=== PATIENT | female | born 1935 | race Caucasian/White ===

== ENCOUNTER 2017-03-19 08:17 | Day surgery (SDC) | payer MEDICARE, MEDICAID ==
[2017-03-19 12:26] VITALS: BP 163/71
== END 2017-03-19 10:29 | disposition home or self-care (01) ==
LOC: SDC 08:17
PROC: 08RK3JZ Replacement of Left Lens with Synthetic Substitute, Percutaneous Approach (ICD-10-PCS; principal; 2017-03-19)
DX: H26.9 Unspecified cataract (principal); E11.9 Type 2 diabetes mellitus without complications